=== PATIENT | male | born 1965 | race Caucasian/White ===

== ENCOUNTER 2024-03-04 09:54 | Emergency (ER) | payer MEDICARE ==
[~2024-03-04] VITALS: Ht 182.9 cm; Wt 138.7 kg
[2024-03-04] MEDS ORDERED: FLUORESCEIN SOD 1 EA STRP OS ONE (10:30)
[2024-03-04] MEDS ORDERED: TETRACAINE HCL 0.5% 4 ML BTL OS ONE (10:30)
[2024-03-04 10:56] VITALS: BP 148/82
== END 2024-03-04 10:54 | disposition home or self-care (01) ==
LOC: ED 09:54
DX: H01.004 Unspecified blepharitis left upper eyelid (principal)
CPT/HCPCS: 99283

== ENCOUNTER 2024-08-14 10:53 | Emergency (ER) | payer MEDICARE ==
[~2024-08-14] VITALS: Ht 182.9 cm; Wt 139.0 kg
[2024-08-14 11:11] LABS: BASOPHILS 0.5 % (0-2); EOSINOPHILS 2.3 % (0-6); HEMATOCRIT 45.1 % (35.0-50.0); HEMOGLOBIN 15.6 g/dL (12.0-18.0); LYMPHOCYTES 36.5 % (24-44); MCH 32.8 (27-36); MCHC 34.7 g/dl (30-36); MCV 94.6 fl (81-99); MONOCYTES 7.7 % (0-12); PLATELET COUNT 230 K/uL (140-440); RBC 4.77 M/ul (4.3-5.7); RDW 12.4 (10.5-15.0)
[2024-08-14] MEDS ORDERED: MECLIZINE HCL 25 MG TAB PO ONE (11:15)
[2024-08-14] MEDS ORDERED: ondansetron HCL 4 MG/2 ML VIAL IV ONE (11:15)
[2024-08-14] MEDS ORDERED: ASPIRIN 81 MG CHEW PO ONE (11:15)
[2024-08-14 11:23] LABS: INR 0.94 (0.80-1.30); PROTIME 12.2 Sec (11.2-14.2)
[2024-08-14 11:25] LABS: PARTIAL THROMBOPLASTIN TIME 23.4 Sec (22.9-41.3)
[2024-08-14 11:34] LABS: ALBUMIN 3.8 g/dL (3.4-5.0); ALBUMIN/GLOBULIN RATIO 1.12 (1.1-2.4); ANION GAP 14.2 (7-21); BILIRUBIN, TOTAL 0.3 ng/dL (0.2-1.0); BUN/CREATININE RATIO 18.82 (6.0-28.6); CALCIUM 9.6 mg/dL (8.5-10.1); CREATININE, SERUM 0.85 mg/dL (0.70-1.30); POTASSIUM 4.2 mmol/L (3.5-5.1); PROTEIN, TOTAL 7.2 g/dL (6.4-8.2)
[2024-08-14 11:39] LABS: MAGNESIUM 1.9 mg/dL (1.8-2.4)
[2024-08-14 12:36] LABS: INFLUENZA B NAA NEGATIVE (NEGATIVE); RESPIRATORY SYNCYTIAL VIR NAA NEGATIVE (NEGATIVE)
--- NOTE | 2024-08-14 13:25 | EKG ---
[facility] [address] [facility] [place], [place] [address] Signed Sinus rhythm with frequent premature ventricular complexes in a pattern of bigeminy Otherwise normal ECG No previous ECGs available Confirmed by Giana Braun MD ([id number]) on 08/14/2024 1:25:16 PM Electronically Signed By: GIANA BRAUN DO 08/14/24 1325 PATIENT NAME: EDIN MOORE Electrocardiogram DATE OF : 67 PHYSICIAN: GIANA BRAUN DO REPORT #: [id number] REPORT IS CONFIDENTIAL AND NOT TO BE RELEASED WITHOUT AUTHORIZATION
[2024-08-14] MEDS ORDERED: TRICOR145 MG PO (13:49)
[2024-08-14] MEDS ORDERED: ONDANSETRON ODT4 MG PO (13:49)
[2024-08-14] MEDS ORDERED: LIPITOR20 MG PO (13:49)
[2024-08-14] MEDS ORDERED: MECLIZINE HCL25 MG PO (13:49)
[2024-08-14 14:02] VITALS: BP 165/97
== END 2024-08-14 14:14 | disposition home or self-care (01) ==
LOC: ED 10:53
PROVIDERS: Emergency Medicine
DX: R42 Dizziness and giddiness (principal); E78.5 Hyperlipidemia, unspecified; Z11.52 Encounter for screening for COVID-19
CPT/HCPCS: 36415; 70450; 70496; 70498; 70553; 71045; 80053; 80061; 83735; 83880; 84484; 85025; 85610; 85730; 87502; 93005; 93010; 99285-25; A9270; A9577; J2405; Q3014; Q9967; U0002